=== PATIENT | male | born 1965 | race Caucasian/White ===

== ENCOUNTER 2020-03-10 07:44 | Emergency (ER) | payer SELFPAY ==
[~2020-03-10] VITALS: Ht 167.6 cm; Wt 66.0 kg
[2020-03-10 07:49] VITALS: BP 118/70
[2020-03-10] MEDS ORDERED: ACETAMINOPHEN 325MG TABLET PO ONE (09:30)
== END 2020-03-10 11:14 | disposition home or self-care (01) ==
LOC: ER 07:44
DX: S00.83XA Contusion of other part of head, initial encounter (principal); X58.XXXA Exposure to other specified factors, initial encounter; Y93.89 Activity, other specified; Y92.89 Other specified places as the place of occurrence of the external cause; Y99.8 Other external cause status
CPT/HCPCS: 70486; 93005; 99285